=== PATIENT | female | born 1975 | race Caucasian/White ===

== ENCOUNTER 2018-10-24 07:22 | Outpatient (CLI) | payer MEDICARE ==
[2018-10-24] MEDS ORDERED: Iopamidol 370 76% 100 ML VIAL ONE (09:00)
--- NOTE | 2018-10-24 11:43 | CT ---
CHEST AND ABDOMEN AND PELVIC CT SCAN WITH AND WITHOUT IV CONTRAST: Date: 10/24/18 HISTORY: Hepatocellular carcinoma. COMPARISON: 04/15/16. FINDINGS: There has been surgical removal of the previously noted huge right lobe of liver mass. In the mesente radha fat, in the region of the previous right lobe of liver, there are several scattered areas of poor ly defined opacities up to approximately 2.0 cm in size, which may represent some areas of fat necros is or minimal scarring. There is a circumscribed small low density possible fluid collection adjacent to the hemidiaphragm and to the right lobe of the liver measuring 1.4 x 3.2 cm, again probably posto perative. The lungs show no evidence of acute pulmonary parenchymal process. No pleural effusion or pericardial effusion. No evidence for pulmonary metastasis. No mediastinal mass or adenopathy. In the right lateral aspect of the residual postoperative liver, cranially adjacent to the hemidiaphr agm, there is an approximately 6.0 x 10.0 cm diameter of somewhat poorly defined low attenuation, alt julio cesar there appear to be normal portal and hepatic veins through this region, without overt distortio n, which probably has more of an appearance of fatty change. However, in the more caudal portion of t he right side of the residual liver, more in the caudate lobe region, there is a 5.5 cm diameter area of abnormal low attenuation with some distortion of the architecture within this area of abnormal lo w attenuation, and normal vessels do not appear to be progressing through this area. This area is cer tainly concerning for recurrent neoplasm. Pancreas, spleen, adrenal glands, and kidneys are unremarkable. Normal appearing appendix. Multiseptated appearing cystic mass in the left adnexal regio measuring 2.9 x 8.9 x 7.1 cm, compared to prior study at which time it measured 3.7 x 6.1 x 7.1 cm. It appears to have changed shape somewha t, but does not appear to show an overall increase in volume. No evidence for ascites. IMPRESSION: 1. Extensive status post partial hepatectomy with removal of the huge right lobe of liver mass. 2. Approximately 5.5 cm diameter low attenuation focus in the posterior more caudal portion of the r esidual liver, probably in the caudate lobe. This certainly could represent recurrent neoplasm. Follo w-up MRI examination with and without contrast with liver mass protocol is recommended for further as sessment. 3. More poorly defined area of abnormal low attenuation in the more cranial aspect of the residual l iver which has more of the appearance of fatty infiltration. 4. Small circumscribed fluid density adjacent to the hemidiaphragm and adjacent to the postoperative right side of the liver, probably postoperative. 5. No evidence for metastasis. 6. Multiloculated cystic mass in the left adnexal region which has changed shape somewhat but overal l size does not appear to be significantly increased from the prior study. 7. Other findings as above. POS: [facility]
== END 2018-10-24 07:23 | disposition home or self-care (01) ==
LOC: SCSCT 07:22
DX: C22.0 Liver cell carcinoma (principal); E27.8 Other specified disorders of adrenal gland; Z90.49 Acquired absence of other specified parts of digestive tract
CPT/HCPCS: 71270; 74178; Q9967

== ENCOUNTER 2019-07-11 11:11 | Outpatient (CLI) | payer MEDICARE ==
--- NOTE | 2019-07-11 15:42 | CT ---
CT OF THE CHEST, ABDOMEN, AND PELVIS WITH AND WITHOUT CONTRAST: 07/11/19 INDICATION: History of hepatocellular carcinoma. COMPARISON: CT of the chest, abdomen and pelvis with and without contrast dated 10/24/16 and a multiphase contrast enhanced examination of the abdomen and pelvis dated 04/15/16. FINDINGS: CHEST: No suspicious pulmonary nodule, pleural effusion or pneumothorax is evident. There is mild scarring i nvolving the anterior right middle lobe which is stable appearing. No enlarged lymph nodes are seen w ithin the mediastinum, hilar or axillary regions. ABDOMEN: There is stable postprocedural change of a right hepatectomy. No definite suspicious focal hepatic le ronan is evident. There is hypertrophy of the left hepatic lobe and caudate lobe. There is flow presen t within the residual main portal vein and left portal vein. Small amount of fluid is seen underlying the right hemidiaphragm adjacent to the hepatectomy site, likely postoperative in nature. No pathologically enlarged lymph nodes are seen within the upper abdomen. Unopacified large and small bowel are unremarkable appearing. A loculated left adnexal cystic mass is stable measuring 8.9 x 3.3 cm. No free fluid is evident. No definite acute osseous abnormality is evident. IMPRESSION: 1. Stable postprocedural change of a right sided hepatectomy. No definite focal hepatic lesion i s evident. There is hypertrophy of the left hepatic lobe and caudate lobe. A multiphase examination m ay be helpful to evaluate for very subtle hepatic lesions. There is no overt evidence to suggest recu rrent malignancy on this examination. 2. Persistent left adnexal cystic mass. POS: [facility]
== END 2019-07-11 11:12 | disposition home or self-care (01) ==
LOC: SCSCT 11:11
DX: C22.0 Liver cell carcinoma (principal); N83.8 Other noninflammatory disorders of ovary, fallopian tube and broad ligament; R16.0 Hepatomegaly, not elsewhere classified; Z90.49 Acquired absence of other specified parts of digestive tract
CPT/HCPCS: 71250; 71260; 74177